=== PATIENT | male | born 1955 | race Caucasian/White ===

== ENCOUNTER 2024-01-19 11:56 | Emergency (ER) | payer OTHER ==
[~2024-01-19] VITALS: Ht 167.6 cm; Wt 54.4 kg
[2024-01-19] MEDS ORDERED: Ketorolac Tromethamine 15mg Vial IM ONE (12:20)
[2024-01-19] MEDS ORDERED: HYDACE10B PO (14:10)
[2024-01-19] MEDS ORDERED: Norco 5-325 Ta1 EACH PO (14:24)
== END 2024-01-19 14:34 | disposition home or self-care (01) ==
LOC: ER 11:56
DX: S42.131A Displaced fracture of coracoid process, right shoulder, initial encounter for closed fracture (principal); W01.0XXA Fall on same level from slipping, tripping and stumbling without subsequent striking against object, initial encounter; I10 Essential (primary) hypertension; I48.91 Unspecified atrial fibrillation
CPT/HCPCS: 29105; 72070; 73030; 73200; 76377; 96372-59; 99284-25; J1885